=== PATIENT | female | born 2000 | race African-American/Black ===

== ENCOUNTER 2024-09-28 10:34 | Inpatient (IN) | payer BC ==
[2024-09-28] MEDS ORDERED: ZOLPIDEM TARTRATE 10 MG TABLET PO PRN (11:00)
[2024-09-28 16:44] VITALS: RESP 16
[2024-09-28 21:07] VITALS: RESP 18
[2024-09-29] MEDS ORDERED: MAGNESIUM HYDROXIDE SUSPENSION 30 ML UDCUP PO PRN (04:30)
[2024-09-29] MEDS ORDERED: OMEPRAZOLE 20 MG CAPSULE PO PRN (04:30)
[2024-09-29] MEDS ORDERED: PETROLATUM,WHITE 28 GM JELLY TP PRN (04:30)
[2024-09-29] MEDS ORDERED: BENZOCAINE/MENTHOL [CEPACOL] LOZENGE PO PRN (04:30)
[2024-09-29] MEDS ORDERED: ONDANSETRON 4 MG TABLET PO PRN (04:30)
[2024-09-29] MEDS ORDERED: ACETAMINOPHEN 325 MG TABLET PO PRN (04:30)
[2024-09-29] MEDS ORDERED: MAG HYDROX/ALUMINUM HYD/SIMETH ES 30 ML SUSPENSION UDCUP PO PRN (04:30)
[2024-09-29] MEDS ORDERED: LOPERAMIDE HCL 2 MG CAPSULE PO PRN (04:30)
[2024-09-29] MEDS ORDERED: DOCUSATE SODIUM 100 MG CAPSULE PO PRN (04:30)
[2024-09-29] MEDS ORDERED: BACITRACIN 28 GM OINTMENT TP PRN (04:30)
[2024-09-29] MEDS ORDERED: ALBUTEROL SULFATE HFA 90 MCG/PUFF 8 GM INHALER IH PRN (04:30)
[2024-09-29 05:14] VITALS: BP 126/83; PULSE 101; RESP 16; TEMP 97.6; O2SAT 99
[2024-09-29] MEDS: IBUPROFEN 600 MG TABLET PO PRN (05:14)
[2024-09-29 09:03] VITALS: RESP 15
[2024-09-29] MEDS ORDERED: BENZ0.5T52 PO (11:39)
[2024-09-29] MEDS ORDERED: GABA-1404 PO (11:39)
[2024-09-29] MEDS ORDERED: PALI156D IM (11:39)
[2024-09-29] MEDS ORDERED: TRAZ-252 PO (11:55)
[2024-09-29] MEDS ORDERED: FERR324T23 PO (11:55)
[2024-09-29] MEDS ORDERED: ARIP10TA38 PO (11:55)
[2024-09-29] MEDS ORDERED: LORA1TAB25 PO (11:55)
[2024-09-29] MEDS ORDERED: HYDR50CA6 PO (11:55)
[2024-09-29] MEDS ORDERED: HALO1TAB2 PO (11:55)
[2024-09-29] MEDS: GABAPENTIN 300 MG CAPSULE PO SCH (16:46)
[2024-09-29] MEDS: BENZTROPINE MESYLATE 0.5 MG TABLET PO SCH (16:46)
[2024-09-29 20:15] VITALS: BP 118/81; PULSE 102; RESP 18; TEMP 98; O2SAT 99
[2024-09-30 08:25] VITALS: BP 119/83; PULSE 94; RESP 16; TEMP 97.9; O2SAT 100
[2024-09-30 20:19] VITALS: BP 124/70; PULSE 64; RESP 17; TEMP 97.7; O2SAT 95
[2024-10-01] MEDS: LORazepam 2 MG/ML VIAL IM ONE (00:20)
[2024-10-01 00:50] VITALS: BP 113/81; PULSE 89; RESP 16; TEMP 97.9; O2SAT 97
[2024-10-01 08:55] VITALS: BP 108/72; PULSE 97; RESP 18; TEMP 98; O2SAT 95
[2024-10-01 20:10] VITALS: BP 125/90; PULSE 84; RESP 18; TEMP 97.4; O2SAT 99
[2024-10-02] MEDS: PALIPERIDONE PALMITATE 156 MG/ML SYRINGE IM ONE (08:12)
[2024-10-02 08:19] VITALS: BP 121/68; PULSE 100; RESP 18; TEMP 97.8; O2SAT 100
[2024-10-02 17:55] VITALS: BP 132/74
[2024-10-02 20:00] VITALS: BP 117/84; PULSE 111; RESP 17; TEMP 97.5; O2SAT 99
[2024-10-02] MEDS: NITROGLYCERIN 0.4 MG SUBLINGUAL TABLET #25 SL ONE (20:42)
[2024-10-02 20:43] VITALS: RESP 16
[2024-10-02 21:00] VITALS: RESP 16
[2024-10-03 08:32] VITALS: BP 120/79; PULSE 115; RESP 16; TEMP 97.1; O2SAT 100
[2024-10-03 20:08] VITALS: BP 106/65; PULSE 107; RESP 16; TEMP 97.3; O2SAT 100
[2024-10-04] MEDS: FERROUS SULFATE 325 MG EC TABLET PO SCH (06:24)
[2024-10-04 08:23] VITALS: BP 108/72; PULSE 100; RESP 19; TEMP 97.7; O2SAT 100
[2024-10-04] MEDS: CHOLECALCIFEROL (VIT D3) 1,000 UNITS [25 MCG] TABLET PO SCH (08:49)
[2024-10-04] MEDS: MULTIVITAMINS WITH MINERALS, THERAPEUTIC TABLET PO SCH (08:49)
[2024-10-04 21:15] VITALS: RESP 18
[2024-10-05 08:06] VITALS: BP 105/63; PULSE 100; RESP 17; TEMP 97.1; O2SAT 100
[2024-10-05 09:19] LABS: APPEARANCE,URINE CLEAR (CLEAR); GLUCOSE, URINE (UA) NEGATIVE (NEGATIVE); LEUKOCYTE ESTERASE ,URINE NEGATIVE (NEGATIVE); NITRATE,URINE NEGATIVE (NEGATIVE); OCCULT BLOOD,URINE NEGATIVE (NEGATIVE); PH,URINE DRUG SCREEN 7.5 (5.0-8.0); SPECIFIC GRAVITIY, URINE 1.003 (1.003-1.030)
[2024-10-05 09:26] LABS: AMPHET/METH SCREEN,URINE NEGATIVE (NEGATIVE); BARBITURATE SCREEN, URINE NEGATIVE (NEGATIVE); CANNABINOID SCREEN,URINE NEGATIVE (NEGATIVE); COCAINE SCREEN,URINE NEGATIVE (NEGATIVE); METHADONE SCREEN, URINE NEGATIVE (NEGATIVE)
[2024-10-05 09:27] LABS: ALCOHOL, URINE DRUG SCREEN NEGATIVE (NEGATIVE)
[2024-10-05 20:17] VITALS: RESP 17
[2024-10-06 08:06] VITALS: BP 115/74; PULSE 105; RESP 16; TEMP 97.3; O2SAT 100
[2024-10-06 20:11] VITALS: BP 107/67; PULSE 89; RESP 18; TEMP 97.4; O2SAT 100
[2024-10-07 07:59] VITALS: BP 115/67; PULSE 90; RESP 17; TEMP 98; O2SAT 100
[2024-10-07] MEDS ORDERED: PALI234D IM (08:08)
[2024-10-07] MEDS ORDERED: FERR325T27 PO (08:59)
[2024-10-07] MEDS ORDERED: MULT-1303 PO (09:03)
[2024-10-07] MEDS ORDERED: CHOL25TA4 PO (09:04)
[2024-10-07] MEDS ORDERED: GABA-1181 PO (09:08)
[2024-10-27] MEDS ORDERED: PALIPERIDONE PALMITATE 234 MG/1.5 ML SYRINGE IM SCH (09:00)
== END 2024-10-07 10:05 | DRG 885 ==
LOC: B2S 13:26 → B3A 09-29 13:24
PROVIDERS: ADMIT Psychiatry & Neurology Psychiatry; ATTEND Psychiatry & Neurology Psychiatry
PROC: GZHZZZZ Group Psychotherapy (ICD-10-PCS; principal; 2024-09-29)
PROC: GZ52ZZZ Individual Psychotherapy, Cognitive (ICD-10-PCS; 2024-09-30)
DX: F31.2 Bipolar disorder, current episode manic severe with psychotic features (principal); F41.9 Anxiety disorder, unspecified; G47.00 Insomnia, unspecified; F43.12 Post-traumatic stress disorder, chronic; Z79.899 Other long term (current) drug therapy
CPT/HCPCS: 80307; 81003; J1200; J1630; J2060